=== PATIENT | female | born 1965 | race American Indian/Alaskan Native ===

== ENCOUNTER 2017-05-09 14:09 | Emergency (ER) | payer SELFPAY ==
[2017-05-09 14:20] VITALS: BP 117/63
[2017-05-09] MEDS ORDERED: MOTRIN PO ONE (14:48)
[2017-05-09] MEDS ORDERED: TESSALON PERLES PO ONE (14:48)
--- NOTE | 2017-05-09 15:09 | Emergency Department Report ---
- General Chief Complaint: Upper Respiratory Infection Stated Complaint: DIZZY WITH COUGH Time Seen by Provider: 05/09/17 14:48 Source: patient Mode of arrival: Ambulatory Limitations: No Limitations - History of Present Illness Initial Comments: This is a 51-year-old female nontoxic, well nourished in appearance, no acute signs of distress presents to the ED with c/o of productive cough, fever, chills , body aches, rhinorrhea, nasal congestion x1 week. Patient describes productive cough as yellow mucus production. Patient denies any sick contact. Patient denies any recent travels, long car, recent hospital stays. Patient denies any calf pain or calf tenderness. Patient denies any chest pain, short of breath, fever, chills, nausea, vomiting, hemoptysis, numbness, tingling, headache or stiff neck. Patient denies any allergies. Past medical history includes diabetes hypertension. MD Complaint: cough, rhinorrhea, nasal congestion -: week(s) (1) Severity: mild Severity scale (0 -10): 8 Quality: aching Consistency: constant Improves With: nothing Worsens With: nothing Associated Symptoms: rhinorrhea, nasal congestion, cough. denies: fever, chills , myalgias, diaphoresis, headache, sore throat, stiff neck, chest pain, shortness of breath, abdominal pain, nausea, vomiting, diarrhea, dysuria, rash, confusion, right sweats, weight loss, epistaxis, hoarseness, ear pain Treatments Prior to Arrival: none - Related Data Previous Rx's Medication Instructions Recorded Last Taken Type Cyclobenzaprine HCl [Flexeril] 10 mg PO TID #30 tablet 06/03/13 Unknown Rx HYDROcodone/APAP 7.5-325 [[place] 1 each PO Q6HR PRN #20 tablet 06/03/13 Unknown Rx 7.5/325 mg] Ibuprofen [Motrin] 600 mg PO Q8H PRN #60 tablet 06/03/13 Unknown Rx HYDROcodone/ACETAMINOPHEN [[place] 1 each PO Q6HR #20 tablet 09/12/13 Unknown Rx 5/325 Tablet] Ibuprofen [Motrin] 600 mg PO Q8H PRN #50 tablet 09/12/13 Unknown Rx Sulfamethoxazole/Trimethoprim 1 each PO BID #20 tablet 09/12/13 Unknown Rx [Bactrim Ds] HYDROcodone/APAP 5-325 [[place] 1 each PO Q6HR PRN #20 tablet 05/28/14 Unknown Rx 5/325] Lisinopril/Hydrochlorothiazide 1 tab PO QDAY #30 tablet 05/28/14 Unknown Rx [Zestoretic 20-12.5 mg] Prednisone [Prednisone 5 mg (6-Day 5 mg PO .TAPER #1 tab.ds.pk 05/28/14 Unknown Rx Pack, 21 Tabs)] glipiZIDE [glipiZIDE XL] 10 mg PO DAILY #30 tab.er.24 05/28/14 Unknown Rx Ibuprofen [Motrin 600 MG tab] 600 mg PO Q8H PRN #30 tablet 10/30/14 Unknown Rx Sulfamethoxazole/Trimethoprim 1 each PO BID #20 tablet 10/30/14 Unknown Rx [Bactrim DS TAB] traMADol [Ultram 50 MG tab] 50 mg PO Q6HR PRN #20 tablet 10/30/14 Unknown Rx Doxycycline [Vibramycin CAP] 100 mg PO Q12HR #20 capsule 03/17/15 Unknown Rx Ibuprofen [Motrin] 800 mg PO Q8HR PRN #15 tablet 03/17/15 Unknown Rx Lisinopril/Hydrochlorothiazide 1 tab PO QDAY #30 tab 03/17/15 Unknown Rx [Zestoretic 20-12.5 mg] ALBUTEROL Inhaler [ProAir HFA 2 puff IH QID PRN #1 inhalation 05/09/17 Unknown Rx Inhaler] Azithromycin [Zithromax Z-ZACH] 250 mg PO DAILY #6 tablet 05/09/17 Unknown Rx Benzonatate [Tessalon Perle] 100 mg PO DAILY PRN #20 capsule 05/09/17 Unknown Rx Prednisone [predniSONE 10 mg 10 mg PO .TAPER #1 tab.ds.pk 05/09/17 Unknown Rx (6-Day Pack, 21 Tabs)] Allergies Allergy/AdvReac Type Severity Reaction Status Date / Time No Known Allergies Allergy Verified 09/12/13 10:04 ED Review of Systems ROS: Stated complaint: DIZZY WITH COUGH Other details as noted in HPI Constitutional: denies: chills, fever Eyes: denies: eye pain, eye discharge, vision change ENT: denies: ear pain, throat pain Respiratory: cough. denies: shortness of breath, wheezing Cardiovascular: denies: chest pain, palpitations Endocrine: no symptoms reported Gastrointestinal: denies: abdominal pain, nausea, diarrhea Genitourinary: denies: urgency, dysuria, discharge Musculoskeletal: denies: back pain, joint swelling, arthralgia Skin: denies: rash, lesions Neurological: denies: headache, weakness, paresthesias Psychiatric: denies: anxiety, depression Hematological/Lymphatic: denies: easy bleeding, easy bruising ED Past Medical Hx - Past Medical History Hx Hypertension: Yes Hx Diabetes: Yes - Surgical History Additional Surgical History: Hyst. - Social History Smoking Status: Current Every Day Smoker Substance Use Type: Alcohol, Methamphetamines - Medications Home Medications: Home Medications Medication Instructions Recorded Confirmed Last Taken Type Cyclobenzaprine HCl [Flexeril] 10 mg PO TID #30 tablet 06/03/13 Unknown Rx HYDROcodone/APAP 7.5-325 [[place] 1 each PO Q6HR PRN #20 tablet 06/03/13 Unknown Rx 7.5/325 mg] Ibuprofen [Motrin] 600 mg PO Q8H PRN #60 tablet 06/03/13 Unknown Rx HYDROcodone/ACETAMINOPHEN [[place] 1 each PO Q6HR #20 tablet 09/12/13 Unknown Rx 5/325 Tablet] Ibuprofen [Motrin] 600 mg PO Q8H PRN #50 tablet 09/12/13 Unknown Rx Sulfamethoxazole/Trimethoprim 1 each PO BID #20 tablet 09/12/13 Unknown Rx [Bactrim Ds] HYDROcodone/APAP 5-325 [[place] 1 each PO Q6HR PRN #20 tablet 05/28/14 Unknown Rx 5/325] Lisinopril/Hydrochlorothiazide 1 tab PO QDAY #30 tablet 05/28/14 Unknown Rx [Zestoretic 20-12.5 mg] Prednisone [Prednisone 5 mg (6-Day 5 mg PO .TAPER #1 tab.ds.pk 05/28/14 Unknown Rx Pack, 21 Tabs)] glipiZIDE [glipiZIDE XL] 10 mg PO DAILY #30 tab.er.24 05/28/14 Unknown Rx Ibuprofen [Motrin 600 MG tab] 600 mg PO Q8H PRN #30 tablet 10/30/14 Unknown Rx Sulfamethoxazole/Trimethoprim 1 each PO BID #20 tablet 10/30/14 Unknown Rx [Bactrim DS TAB] traMADol [Ultram 50 MG tab] 50 mg PO Q6HR PRN #20 tablet 10/30/14 Unknown Rx Doxycycline [Vibramycin CAP] 100 mg PO Q12HR #20 capsule 03/17/15 Unknown Rx Ibuprofen [Motrin] 800 mg PO Q8HR PRN #15 tablet 03/17/15 Unknown Rx Lisinopril/Hydrochlorothiazide 1 tab PO QDAY #30 tab 03/17/15 Unknown Rx [Zestoretic 20-12.5 mg] ALBUTEROL Inhaler [ProAir HFA 2 puff IH QID PRN #1 inhalation 05/09/17 Unknown Rx Inhaler] Azithromycin [Zithromax Z-ZACH] 250 mg PO DAILY #6 tablet 05/09/17 Unknown Rx Benzonatate [Tessalon Perle] 100 mg PO DAILY PRN #20 capsule 05/09/17 Unknown Rx Prednisone [predniSONE 10 mg 10 mg PO .TAPER #1 tab.ds.pk 05/09/17 Unknown Rx (6-Day Pack, 21 Tabs)] ED Physical Exam - General Limitations: No Limitations General appearance: alert, in no apparent distress - Head Head exam: Present: atraumatic, normocephalic - Eye Eye exam: Present: normal appearance, PERRL, EOMI Pupils: Present: normal accommodation - ENT ENT exam: Present: normal exam, normal orophraynx, mucous membranes moist, TM's normal bilaterally, normal external ear exam - Neck Neck exam: Present: normal inspection, full ROM. Absent: tenderness, meningismus, lymphadenopathy, thyromegaly - Respiratory Respiratory exam: Present: normal lung sounds bilaterally. Absent: respiratory distress, wheezes, rales, rhonchi, stridor, chest wall tenderness, accessory muscle use, decreased breath sounds, prolonged expiratory - Cardiovascular Cardiovascular Exam: Present: regular rate, normal rhythm, normal heart sounds. Absent: bradycardia, tachycardia, irregular rhythm, systolic murmur, diastolic murmur, rubs, gallop - GI/Abdominal GI/Abdominal exam: Present: soft, normal bowel sounds. Absent: distended, tenderness, guarding, rebound, rigid, diminished bowel sounds - Rectal Rectal exam: Present: deferred - Extremities Exam Extremities exam: Present: normal inspection, full ROM, normal capillary refill. Absent: tenderness, pedal edema, joint swelling, calf tenderness - Back Exam Back exam: Present: normal inspection, full ROM. Absent: tenderness, CVA tenderness (R), CVA tenderness (L), muscle spasm, paraspinal tenderness, vertebral tenderness, rash noted - Neurological Exam Neurological exam: Present: alert, oriented X3, CN II-XII intact, normal gait, reflexes normal - Psychiatric Psychiatric exam: Present: normal affect, normal mood - Skin Skin exam: Present: warm, dry, intact, normal color. Absent: rash ED Course Vital Signs 05/09/17 14:11 Temperature 98.5 F Pulse Rate 76 Respiratory 18 Rate Blood Pressure 117/63 O2 Sat by Pulse 99 Oximetry - Reevaluation(s) Reevaluation #1: 05/09/17 15:14 Patient is speaking in full sentences with no signs of distress noted. ED Medical Decision Making - Medical Decision Making This is a 51-year-old female that presents with upper respiratory infection. Patient is stable and was examined by me. Chest x-ray has been obtained and dictated by radiologist with normal exam. Patient is notified of x-ray results with no questions noted. Due to patient having symptoms of upper respiratory infection and worsening I will treat patient empirically with zpak and prednisone. Patient is above the >72 hour window for tamiflu if influenza. Patient was instructed to increase hydration, rest and take Motrin for fever episodes. Patient received motrin and tesslone perrls in the ED. Vitals stable. Patient is nonfebrile and normal heart rate. Patient was orally hydrated and patient tolerated well known nausea or vomiting. Patient was instructed Follow-up with a primary care doctor in 3-5 days or if symptoms worsen and continue return to emergency room as soon as possible. At time time of discharge, the patient does not seem toxic or ill in appearance. No acute signs of distress noted. Patient agrees to discharge treatment plan of care. No further questions noted by the patient. Critical care attestation.: If time is entered above; I have spent that time in minutes in the direct care of this critically ill patient, excluding procedure time. ED Disposition Clinical Impression: Upper respiratory infection Qualifiers: URI type: unspecified URI Qualified Code(s): J06.9 - Acute upper respiratory infection, unspecified Disposition: - TO HOME OR SELFCARE Is pt being admited?: No Does the pt Need Aspirin: No Condition: Stable Instructions: Benzonatate (By mouth), Prednisone (By mouth), Azithromycin (By mouth), Upper Respiratory Infection (ED) Additional Instructions: Follow-up with a primary care doctor in 3-5 days or if symptoms worsen and continue return to emergency room as soon as possible. Prescriptions: ALBUTEROL Inhaler [ProAir HFA Inhaler] 2 puff IH QID PRN #1 inhalation PRN Reason: Shortness Of Breath Azithromycin [Zithromax Z-ZACH] 250 mg PO DAILY #6 tablet Benzonatate [Tessalon Perle] 100 mg PO DAILY PRN #20 capsule PRN Reason: Cough Prednisone [predniSONE 10 mg (6-Day Pack, 21 Tabs)] 10 mg PO .TAPER #1 tab.ds.pk Referrals: PRIMARY CARE, [Primary Care Provider] - 3-5 Days CLAUDIA VALDES MD [Staff Physician] - 3-5 Days [facility] [Outside] - 3-5 Days [facility] [Outside] - 3-5 Days Forms: Work/School Release Form(ED)
--- NOTE | 2017-05-09 16:27 | XRay Report ---
FINAL REPORT EXAM: XR CHEST ROUTINE 2V HISTORY: cough TECHNIQUE: PA and lateral views of the chest PRIORS: None. FINDINGS: Lines, tubes, and devices: N/A Lungs and pleura: Trachea is normal in position. There is mild perihilar bronchial wall thickening suggesting viral bronchiolitis. Lungs are clear of infiltrate, pleural effusion, vascular congestion, or pneumothorax. Cardiomediastinal silhouette: Cardiac and mediastinal silhouettes are unremarkable. Other: Bony structures are intact. IMPRESSION: Mild perihilar bronchial thickening suggesting viral bronchiolitis.
== END 2017-05-09 16:42 | disposition home or self-care (01) ==
LOC: ED 14:09
DX: J06.9 Acute upper respiratory infection, unspecified (principal); I10 Essential (primary) hypertension; E11.9 Type 2 diabetes mellitus without complications; F17.200 Nicotine dependence, unspecified, uncomplicated; F15.10 Other stimulant abuse, uncomplicated
CPT/HCPCS: 71046; 93005; 93010; 99283

== ENCOUNTER 2017-05-16 06:41 | Emergency (ER) | payer SELFPAY ==
[2017-05-16 07:50] LABS: Hematocrit 40.1 % (30.3-42.9); Hemoglobin 12.8 gm/dl (10.1-14.3); Mean Corpuscular HGB Conc 32 % (30-34); Mean Corpuscular Hemoglobin 26 pg (28-32); Mean Corpuscular Volume 81 fl (79-97); Platelet Count 256 K/mm3 (140-440); Red Blood Count 4.93 M/mm3 (3.65-5.03); Red Cell Distribution Width 13.4 % (13.2-15.2)
[2017-05-16 08:04] LABS: BUN/Creatinine Ratio 24; Blood Urea Nitrogen 19 mg/dL (7-17); Calcium 9.9 mg/dL (8.4-10.2); Hemolysis Index 13
--- NOTE | 2017-05-16 08:35 | XRay Report ---
FINAL REPORT EXAM: XR CHEST ROUTINE 2V HISTORY: Shortness of breath TECHNIQUE: PA and lateral chest radiographs PRIORS: 05/09/2017 FINDINGS: No mediastinal shift. Cardiac silhouette is not enlarged. No pneumothorax, effusion, or focal pulmonary opacity. No acute skeletal finding. IMPRESSION: No focal pulmonary opacity.
[2017-05-16] MEDS ORDERED: NACL 0.9% 1000 ML 2,000 ML IV ONE (08:55)
--- NOTE | 2017-05-16 09:15 | Emergency Department Report ---
ED General Adult HPI - General Chief complaint: Weakness Stated complaint: SOB,WEAK Time Seen by Provider: 05/16/17 09:11 Source: patient Mode of arrival: Ambulatory Limitations: No Limitations - History of Present Illness Initial comments: Seen here roughly a week ago with cough and cold symptoms she was several days in the symptom complex therefore influenza study was not obtained they did feel like it was likely URI to get a chest x-ray as well chest x-ray was negative she was sent home on antibiotics and steroids. She is back today stating that for the last 3-4 days she's had polyuria polydipsia. She has a history of diabetes that is diet controlled over the last 10 years. She is worried it may be her sugars are elevated. She is having a persistent cough. She denies headache stiff neck fever nausea vomiting abdominal pain or other complaints -: Gradual Radiation: non-radiation Severity scale (0 -10): 0 Associated Symptoms: malaise. denies: confusion, chest pain, cough, diaphoresis , fever/chills, headaches, loss of appetite, nausea/vomiting, rash, seizure, shortness of breath, syncope, weakness - Related Data Previous Rx's Medication Instructions Recorded Last Taken Type Cyclobenzaprine HCl [Flexeril] 10 mg PO TID #30 tablet 06/03/13 Unknown Rx HYDROcodone/APAP 7.5-325 [[place] 1 each PO Q6HR PRN #20 tablet 06/03/13 Unknown Rx 7.5/325 mg] Ibuprofen [Motrin] 600 mg PO Q8H PRN #60 tablet 06/03/13 Unknown Rx HYDROcodone/ACETAMINOPHEN [[place] 1 each PO Q6HR #20 tablet 09/12/13 Unknown Rx 5/325 Tablet] Ibuprofen [Motrin] 600 mg PO Q8H PRN #50 tablet 09/12/13 Unknown Rx Sulfamethoxazole/Trimethoprim 1 each PO BID #20 tablet 09/12/13 Unknown Rx [Bactrim Ds] HYDROcodone/APAP 5-325 [[place] 1 each PO Q6HR PRN #20 tablet 05/28/14 Unknown Rx 5/325] Lisinopril/Hydrochlorothiazide 1 tab PO QDAY #30 tablet 05/28/14 Unknown Rx [Zestoretic 20-12.5 mg] Prednisone [Prednisone 5 mg (6-Day 5 mg PO .TAPER #1 tab.ds.pk 05/28/14 Unknown Rx Pack, 21 Tabs)] glipiZIDE [glipiZIDE XL] 10 mg PO DAILY #30 tab.er.24 05/28/14 Unknown Rx Ibuprofen [Motrin 600 MG tab] 600 mg PO Q8H PRN #30 tablet 10/30/14 Unknown Rx Sulfamethoxazole/Trimethoprim 1 each PO BID #20 tablet 10/30/14 Unknown Rx [Bactrim DS TAB] traMADol [Ultram 50 MG tab] 50 mg PO Q6HR PRN #20 tablet 10/30/14 Unknown Rx Doxycycline [Vibramycin CAP] 100 mg PO Q12HR #20 capsule 03/17/15 Unknown Rx Ibuprofen [Motrin] 800 mg PO Q8HR PRN #15 tablet 03/17/15 Unknown Rx Lisinopril/Hydrochlorothiazide 1 tab PO QDAY #30 tab 03/17/15 Unknown Rx [Zestoretic 20-12.5 mg] ALBUTEROL Inhaler [ProAir HFA 2 puff IH QID PRN #1 inhalation 05/09/17 Unknown Rx Inhaler] Azithromycin [Zithromax Z-ZACH] 250 mg PO DAILY #6 tablet 05/09/17 Unknown Rx Benzonatate [Tessalon Perle] 100 mg PO DAILY PRN #20 capsule 05/09/17 Unknown Rx Prednisone [predniSONE 10 mg 10 mg PO .TAPER #1 tab.ds.pk 05/09/17 Unknown Rx (6-Day Pack, 21 Tabs)] Sulfamethoxazole/Trimethoprim 1 each PO BID #14 tablet 05/16/17 Unknown Rx [Bactrim Ds Tablet] Allergies Allergy/AdvReac Type Severity Reaction Status Date / Time No Known Allergies Allergy Verified 09/12/13 10:04 ED Review of Systems ROS: Stated complaint: SOB,WEAK Other details as noted in HPI Comment: All other systems reviewed and negative Constitutional: malaise. denies: diaphoresis, fever ENT: denies: dental pain, hearing loss, epistaxis Respiratory: denies: shortness of breath, SOB with exertion, SOB at rest, stridor Cardiovascular: denies: chest pain, palpitations, dyspnea on exertion Endocrine: denies: excessive sweating, intolerance to cold, intolerance to heat , increased hunger, unexplained weight gain, unexplained weight loss Gastrointestinal: denies: abdominal pain, nausea, vomiting, diarrhea, constipation, hematemesis, melena, hematochezia Genitourinary: urgency, frequency. denies: discharge, abnormal menses Musculoskeletal: denies: joint swelling, arthralgia Neurological: denies: numbness, paresthesias, confusion, abnormal gait ED Past Medical Hx - Past Medical History Previous Medical History?: Yes Hx Hypertension: Yes Hx Diabetes: Yes - Surgical History Past Surgical History?: Yes Additional Surgical History: Hyst. - Social History Smoking Status: Never Smoker Substance Use Type: None - Medications Home Medications: Home Medications Medication Instructions Recorded Confirmed Last Taken Type Cyclobenzaprine HCl [Flexeril] 10 mg PO TID #30 tablet 06/03/13 Unknown Rx HYDROcodone/APAP 7.5-325 [[place] 1 each PO Q6HR PRN #20 tablet 06/03/13 Unknown Rx 7.5/325 mg] Ibuprofen [Motrin] 600 mg PO Q8H PRN #60 tablet 06/03/13 Unknown Rx HYDROcodone/ACETAMINOPHEN [[place] 1 each PO Q6HR #20 tablet 09/12/13 Unknown Rx 5/325 Tablet] Ibuprofen [Motrin] 600 mg PO Q8H PRN #50 tablet 09/12/13 Unknown Rx Sulfamethoxazole/Trimethoprim 1 each PO BID #20 tablet 09/12/13 Unknown Rx [Bactrim Ds] HYDROcodone/APAP 5-325 [[place] 1 each PO Q6HR PRN #20 tablet 05/28/14 Unknown Rx 5/325] Lisinopril/Hydrochlorothiazide 1 tab PO QDAY #30 tablet 05/28/14 Unknown Rx [Zestoretic 20-12.5 mg] Prednisone [Prednisone 5 mg (6-Day 5 mg PO .TAPER #1 tab.ds.pk 05/28/14 Unknown Rx Pack, 21 Tabs)] glipiZIDE [glipiZIDE XL] 10 mg PO DAILY #30 tab.er.24 05/28/14 Unknown Rx Ibuprofen [Motrin 600 MG tab] 600 mg PO Q8H PRN #30 tablet 10/30/14 Unknown Rx Sulfamethoxazole/Trimethoprim 1 each PO BID #20 tablet 10/30/14 Unknown Rx [Bactrim DS TAB] traMADol [Ultram 50 MG tab] 50 mg PO Q6HR PRN #20 tablet 10/30/14 Unknown Rx Doxycycline [Vibramycin CAP] 100 mg PO Q12HR #20 capsule 03/17/15 Unknown Rx Ibuprofen [Motrin] 800 mg PO Q8HR PRN #15 tablet 03/17/15 Unknown Rx Lisinopril/Hydrochlorothiazide 1 tab PO QDAY #30 tab 03/17/15 Unknown Rx [Zestoretic 20-12.5 mg] ALBUTEROL Inhaler [ProAir HFA 2 puff IH QID PRN #1 inhalation 05/09/17 Unknown Rx Inhaler] Azithromycin [Zithromax Z-ZACH] 250 mg PO DAILY #6 tablet 05/09/17 Unknown Rx Benzonatate [Tessalon Perle] 100 mg PO DAILY PRN #20 capsule 05/09/17 Unknown Rx Prednisone [predniSONE 10 mg 10 mg PO .TAPER #1 tab.ds.pk 05/09/17 Unknown Rx (6-Day Pack, 21 Tabs)] Sulfamethoxazole/Trimethoprim 1 each PO BID #14 tablet 05/16/17 Unknown Rx [Bactrim Ds Tablet] ED Physical Exam - General Limitations: No Limitations General appearance: alert, in no apparent distress, anxious - Head Head exam: Present: atraumatic, normocephalic - Eye Eye exam: Present: PERRL, EOMI - ENT ENT exam: Present: normal exam - Neck Neck exam: Present: normal inspection. Absent: tenderness, meningismus - Respiratory Respiratory exam: Present: normal lung sounds bilaterally. Absent: respiratory distress, wheezes, rales, rhonchi, stridor, decreased breath sounds, prolonged expiratory - Cardiovascular Cardiovascular Exam: Present: regular rate, normal rhythm, normal heart sounds. Absent: bradycardia, tachycardia, irregular rhythm - GI/Abdominal GI/Abdominal exam: Present: soft. Absent: distended, tenderness, guarding, rebound, rigid, hyperactive bowel sounds, hypoactive bowel sounds, pulsatile mass - Extremities Exam Extremities exam: Present: normal inspection, normal capillary refill. Absent: tenderness, pedal edema, joint swelling, calf tenderness - Back Exam Back exam: Present: normal inspection. Absent: CVA tenderness (R), CVA tenderness (L), muscle spasm, paraspinal tenderness, vertebral tenderness - Neurological Exam Neurological exam: Present: alert, oriented X3, CN II-XII intact, normal gait. Absent: altered, motor sensory deficit - Skin Skin exam: Absent: cyanosis, diaphoretic, erythema, urticaria, vesicles, petechiae ED Course Vital Signs 05/16/17 05/16/17 05/16/17 06:59 09:00 09:30 Temperature 98.0 F Pulse Rate 107 H 97 H Respiratory 17 14 Rate Blood Pressure 123/93 143/94 O2 Sat by Pulse 99 98 Oximetry ED Medical Decision Making - Lab Data Result diagrams: 05/16/17 07:13 05/16/17 07:13 - Radiology Data Radiology results: report reviewed - Medical Decision Making Patient's glucose was initially 600 is still improved in the ED with sliding scale insulin and fluids. He was in the 300s she does not appear to be dehydrated ketones are negative and the urine bicarbonate was normal and the serum. Chest x-ray is negative symptoms consist of persistent bronchitis after finishing a Z-Zach and a steroid. With hyperglycemia but no ketosis. No skin rash or headache no stiff neck she does have evidence of a UTI. She is well- hydrated tolerating by mouth still 5% follow-up for further evaluation of hyperglycemia without ketosis with UTI and resolving bronchitis we will restart antibiotics she can stop the steroids she will need follow-up with her regular doctor for further evaluation of hyperglycemia she had no chest pain no abdominal pain or other complaints no other emergent processes identified and would warrant further workup or admission at this time she is stable for outpatient follow-up Critical care attestation.: If time is entered above; I have spent that time in minutes in the direct care of this critically ill patient, excluding procedure time. ED Disposition Clinical Impression: Hyperglycemia without ketosis, UTI (urinary tract infection) Disposition: TO HOME OR SELFCARE Is pt being admited?: No Condition: Stable Instructions: Diabetic Hyperglycemia (ED), Urinary Tract Infection in Women (ED ) Additional Instructions: See her doctor tomorrow and return if new or alarming symptoms or call 911 Prescriptions: Sulfamethoxazole/Trimethoprim [Bactrim Ds Tablet] 1 each PO BID #14 tablet Referrals: PRIMARY CARE, [Primary Care Provider] - 3-5 Days Time of Disposition: 13:34
[2017-05-16] MEDS ORDERED: HumuLIN R SUB-Q ONE ×3 (09:52→11:40)
[2017-05-16 10:00] LABS: Anisocytosis 1+; Band Neutrophils # (Manual) 0.1 K/mm3; Basophils % (Manual) 0 % (0.0-1.8); Platelet Estimate Consistent w Auto; Total Cells Counted 100
[2017-05-16 11:33] LABS: Bacteria,Urine 1+ /HPF (Negative); Bilirubin,Urine NEG (Negative); Blood,Urine NEG (Negative); Color,Urine Straw (Yellow); Mucus,Urine FEW /HPF; Protein,Urine <15 mg/dL mg/dL (Negative); Urobilinogen,Urine < 2.0 mg/dL (<2.0)
[2017-05-16 13:44] VITALS: BP 134/91
== END 2017-05-16 14:09 | disposition home or self-care (01) ==
LOC: ED 06:41
DX: N39.0 Urinary tract infection, site not specified (principal); E11.65 Type 2 diabetes mellitus with hyperglycemia; I10 Essential (primary) hypertension
CPT/HCPCS: 36415; 71046; 80048; 81001; 82962; 84484; 84703; 85007; 85025; 87086; 93005; 93010; 96372; 99284; J7030; J1815

== ENCOUNTER 2018-07-06 10:37 | Emergency (ER) | payer SELFPAY ==
[2018-07-06 10:58] VITALS: BP 157/100
[2018-07-06] MEDS ORDERED: DELTASONE PO ONE (12:53)
[2018-07-06] MEDS ORDERED: PEPCID PO ONE (12:53)
[2018-07-06] MEDS ORDERED: KEFLEX PO ONE (12:53)
--- NOTE | 2018-07-06 13:01 | Emergency Department Report ---
ED Rash HPI - HPI Chief Complaint: Skin Rash Stated Complaint: ARMS SWOLLEN Time Seen by Provider: 07/06/18 12:48 Duration: 3 Days Location: Upper Extremities Suspected Cause: Insect Rash Symptoms: Yes Itching, No Facial Swelling, No Tongue/Oral Swelling, No Breathing Difficulties, No Choking Sensation, No Wheezing/Dyspnea, No Peeling, No Blistering, No Fever, No Lightheaded, No Malaise, No Myalgias Severity: mild Other History: 3 DAY HX OF BUG BITES ON BUE. NOW WITH SURROUNDING REDNESS AND SWELLING. PMH. DM ED Review of Systems ROS: Stated complaint: ARMS SWOLLEN Other details as noted in HPI Comment: All other systems reviewed and negative ED Past Medical Hx - Past Medical History Previous Medical History?: Yes Hx Hypertension: Yes Hx Diabetes: Yes - Surgical History Past Surgical History?: Yes Additional Surgical History: Hysterectomy - Family History Family history: no significant - Social History Smoking Status: Never Smoker Substance Use Type: None - Medications Home Medications: Home Medications Medication Instructions Recorded Confirmed Last Taken Type Lisinopril/Hydrochlorothiazide 1 tab PO QDAY #30 tablet 05/28/14 Unknown Rx [Zestoretic 20-12.5 mg] Lisinopril/Hydrochlorothiazide 1 tab PO QDAY #30 tab 03/17/15 Unknown Rx [Zestoretic 20-12.5 mg] Famotidine [Pepcid] 20 mg PO DAILY #5 tablet 07/06/18 Unknown Rx cephALEXin [Keflex] 500 mg PO Q12HR #14 cap 07/06/18 Unknown Rx diphenhydrAMINE [Benadryl CAP] 25 mg PO Q8HR PRN #20 capsule 07/06/18 Unknown Rx methylPREDNISolone [Medrol] 4 mg PO DAILY #1 tab.ds.pk 07/06/18 Unknown Rx Rash Exam - Exam General: Vital signs noted. No distress. Alert and acting appropriately. HEENT: No Periorbital Edema, No Conjuctival Injection, No Chemosis, No Perioral Edema, No Tongue Edema, No Uvular Edema, No Compromised Airway, No Drooling Lungs: Yes Good Air Exchange, No Wheezes, No Ronchi, No Stridor, No Cough, No Labored Respirations, No Retractions, No Use of Accessory Muscles, No Other Abnormal Lung Sounds Heart: Yes Regular, No Murmur Skin: Yes Bulla(e), Yes Erythema, Yes Edema, No Urticarial Rash, No Maculopapular Rash, No Morbilliform rash, No Excoriations, No Weeping, No Tenderness, No Encrustations Other: Positive: Abdomen Normal, Neurologic Normal, Musculoskeletal Normal ED Course Vital Signs 07/06/18 10:56 Temperature 98.5 F Pulse Rate 102 H Respiratory 102 H Rate Blood Pressure 157/100 ED Medical Decision Making - Medical Decision Making INSECT BITES APPROX 6 LUE 1 ON R ELBOW WAS IN HER STORAGE SHED THIS WEEKEND DID NOT SEE A BUG OTHER THAN SPIDER NO NECROSIS Vital Signs 07/06/18 10:56 Temperature 98.5 F Pulse Rate 102 H Respiratory 102 H Rate Blood Pressure 157/100 THE LESIONS ARE ROUND FLUID FILLED AND FIRM TO PALPATION. SURROUNDING SKIN IS RED AND SWOLLEN. NEUROVASC INTACT ULNAR/RADIAL AND MEDIAL NERVE FUNCTION NORMAL RAPID CAP REFILL ULNAR AND RAD PULSES PLUS 2 BILATERAL PT IS DIABETIC ON METFORMIN/GLYBURIDE WILL TREAT INFLAMMATION AND FOR INFECTION GIVEN THE AMOUNT OF REDNESS AND SWELLING. THERE ARE CURRENTLY NO OPEN AREAS Critical care attestation.: If time is entered above; I have spent that time in minutes in the direct care of this critically ill patient, excluding procedure time. ED Disposition Clinical Impression: Insect bite, Cellulitis Disposition: - TO HOME OR SELFCARE Is pt being admited?: No Does the pt Need Aspirin: No Condition: Stable Instructions: Insect Bite or Sting (ED) Additional Instructions: DIET TOLERATED MEDS ORDERED TODAY IN ER FOLLOW INSTRUCTIONS ON THE BOTTLE FOLLOW UP PCP WITHIN 48 HOURS TO ENSURE YOU ARE GETTING BETTER ACTIVITY TOLERATED MOTRIN OR TYLENOL FOR PAIN OR FEVER RETURN TO THE ER FOR WORSENING SYMPTOMS NOT RELIEVED BY YOUR MEDICATIONS. Prescriptions: diphenhydrAMINE [Benadryl CAP] 25 mg PO Q8HR PRN #20 capsule PRN Reason: Itching cephALEXin [Keflex] 500 mg PO Q12HR #14 cap methylPREDNISolone [Medrol] 4 mg PO DAILY #1 tab.ds.pk Famotidine [Pepcid] 20 mg PO DAILY #5 tablet Referrals: DARIUSZ DICKSON MD [Primary Care Provider] - 3-5 Days Time of Disposition: 12:58
== END 2018-07-06 13:26 | disposition home or self-care (01) ==
LOC: ED 10:37
DX: L03.114 Cellulitis of left upper limb (principal); L03.113 Cellulitis of right upper limb; I10 Essential (primary) hypertension; E11.9 Type 2 diabetes mellitus without complications; Z90.710 Acquired absence of both cervix and uterus
CPT/HCPCS: 99282; J7512

== ENCOUNTER 2018-12-14 10:56 | Emergency (ER) | payer SELFPAY ==
--- NOTE | 2018-12-14 11:08 | Event Note ---
ED Screening Note Date of service: 12/14/18 Time: 11:06 ED Screening Note: 53 y/o female comes in for concern for UTI. Patient reports pelvic pain. Hysterectomy. This initial assessment/diagnostic orders/clinical plan/treatment(s) is/are subject to change based on patients health status, clinical progression and re- assessment by fellow clinical providers in the ED. Further treatment and workup at subsequent clinical providers discretion. Patient/guardian urged not to elope from the ED as their condition may be serious if not clinically assessed and managed. Initial orders include:
[2018-12-14 12:34] LABS: Bilirubin,Urine NEG (Negative); Blood,Urine NEG (Negative); Color,Urine Yellow (Yellow); Hyaline Casts,Urine 1 /LPF; Mucus,Urine FEW /HPF; Protein,Urine <15 mg/dL mg/dL (Negative); RBC,Urine < 1.0 /HPF (0.0-6.0); Urobilinogen,Urine < 2.0 mg/dL (<2.0)
[2018-12-14 12:35] LABS: Basophils % (Auto) 0.4 % (0.0-1.8); Eosinophils % (Auto) 0.5 % (0.0-4.3); Hematocrit 38.1 % (30.3-42.9); Hemoglobin 12.2 gm/dl (10.1-14.3); Lymphocytes # (Auto) 1.5 K/mm3 (1.2-5.4); Lymphocytes % (Auto) 28.8 % (13.4-35.0); Mean Corpuscular HGB Conc 32 % (30-34); Mean Corpuscular Volume 83 fl (79-97); Monocytes # (Auto) 0.4 K/mm3 (0.0-0.8); Monocytes % (Auto) 7.5 % (0.0-7.3); Platelet Count 193 K/mm3 (140-440); Red Blood Count 4.62 M/mm3 (3.65-5.03); Red Cell Distribution Width 13.9 % (13.2-15.2)
[2018-12-14 12:43] LABS: Alanine Aminotransferase 16 units/L (7-56); Albumin 4.3 g/dL (3.9-5); BUN/Creatinine Ratio 23; Bilirubin,Direct < 0.2 mg/dL (0-0.2); Blood Urea Nitrogen 14 mg/dL (7-17); Calcium 9.7 mg/dL (8.4-10.2); Hemolysis Index 5
--- NOTE | 2018-12-14 13:59 | Emergency Department Report ---
ED General Adult HPI - General Chief complaint: Abdominal Pain Stated complaint: LOWER ABD PAIN Time Seen by Provider: 12/14/18 11:05 Source: patient Mode of arrival: Ambulatory Limitations: No Limitations - History of Present Illness Initial comments: 53-year-old female complains of urinary frequency for the past 3 days. She also states that she's had some suprapubic discomfort. She denies dysuria. She's had no fever or chills. The discomfort is intermittent and mild in intensity. It does not radiate. She denies nausea vomiting diarrhea or change in her bowel pattern. She is status post hysterectomy. She has a history of hypertension. -: Gradual, days(s) Location: abdomen Radiation: non-radiation Quality: aching Consistency: intermittent Improves with: none Worsens with: none Associated Symptoms: denies other symptoms Treatments Prior to Arrival: none - Related Data Previous Rx's Medication Instructions Recorded Last Taken Type Lisinopril/Hydrochlorothiazide 1 tab PO QDAY #30 tablet 05/28/14 Unknown Rx [Zestoretic 20-12.5 mg] Lisinopril/Hydrochlorothiazide 1 tab PO QDAY #30 tab 03/17/15 Unknown Rx [Zestoretic 20-12.5 mg] Famotidine [Pepcid] 20 mg PO DAILY #5 tablet 07/06/18 Unknown Rx cephALEXin [Keflex] 500 mg PO Q12HR #14 cap 07/06/18 Unknown Rx diphenhydrAMINE [Benadryl CAP] 25 mg PO Q8HR PRN #20 capsule 07/06/18 Unknown Rx methylPREDNISolone [Medrol] 4 mg PO DAILY #1 tab.ds.pk 07/06/18 Unknown Rx traMADol [Ultram 50 MG tab] 50 mg PO Q6HR PRN #7 tablet 12/14/18 Unknown Rx Allergies Allergy/AdvReac Type Severity Reaction Status Date / Time No Known Allergies Allergy Verified 09/12/13 10:04 ED Review of Systems ROS: Stated complaint: LOWER ABD PAIN Other details as noted in HPI Constitutional: denies: chills, fever Eyes: denies: eye pain, eye discharge, vision change ENT: denies: ear pain, throat pain Respiratory: denies: cough, shortness of breath, wheezing Cardiovascular: denies: chest pain, palpitations Endocrine: no symptoms reported Gastrointestinal: abdominal pain. denies: nausea, vomiting, diarrhea, constipation, hematemesis, melena, hematochezia Genitourinary: frequency. denies: urgency, dysuria, hematuria, discharge, abn ormal menses Musculoskeletal: denies: back pain, joint swelling, arthralgia Skin: denies: rash, lesions Neurological: denies: headache, weakness, paresthesias Psychiatric: denies: anxiety, depression Hematological/Lymphatic: denies: easy bleeding, easy bruising ED Past Medical Hx - Past Medical History Hx Hypertension: Yes Hx Diabetes: Yes - Surgical History Additional Surgical History: Hysterectomy - Social History Smoking Status: Never Smoker Substance Use Type: None - Medications Home Medications: Home Medications Medication Instructions Recorded Confirmed Last Taken Type Lisinopril/Hydrochlorothiazide 1 tab PO QDAY #30 tablet 05/28/14 Unknown Rx [Zestoretic 20-12.5 mg] Lisinopril/Hydrochlorothiazide 1 tab PO QDAY #30 tab 03/17/15 Unknown Rx [Zestoretic 20-12.5 mg] Famotidine [Pepcid] 20 mg PO DAILY #5 tablet 07/06/18 Unknown Rx cephALEXin [Keflex] 500 mg PO Q12HR #14 cap 07/06/18 Unknown Rx diphenhydrAMINE [Benadryl CAP] 25 mg PO Q8HR PRN #20 capsule 07/06/18 Unknown Rx methylPREDNISolone [Medrol] 4 mg PO DAILY #1 tab.ds.pk 07/06/18 Unknown Rx traMADol [Ultram 50 MG tab] 50 mg PO Q6HR PRN #7 tablet 12/14/18 Unknown Rx ED Physical Exam - General Limitations: No Limitations General appearance: alert, in no apparent distress - Head Head exam: Present: atraumatic, normocephalic - Eye Eye exam: Present: normal appearance. Absent: scleral icterus - ENT ENT exam: Present: mucous membranes moist - Neck Neck exam: Present: normal inspection - Respiratory Respiratory exam: Present: normal lung sounds bilaterally. Absent: respiratory distress - Cardiovascular Cardiovascular Exam: Present: regular rate, normal rhythm. Absent: systolic murmur, diastolic murmur, rubs, gallop - GI/Abdominal GI/Abdominal exam: Present: soft, normal bowel sounds. Absent: distended, tenderness, guarding, rebound, rigid, organomegaly, mass, bruit, pulsatile mass, hernia - Extremities Exam Extremities exam: Present: normal inspection - Back Exam Back exam: Present: normal inspection - Neurological Exam Neurological exam: Present: alert, oriented X3, CN II-XII intact. Absent: motor sensory deficit - Psychiatric Psychiatric exam: Present: normal affect, normal mood - Skin Skin exam: Present: warm, dry, intact, normal color. Absent: rash ED Course Vital Signs 12/14/18 12/14/18 10:59 11:01 Temperature 98.6 F Pulse Rate 89 Respiratory 18 Rate Blood Pressure 180/103 [Left] O2 Sat by Pulse 100 Oximetry - Reevaluation(s) Reevaluation #1: Patient remains asymptomatic in the emergency department. She states she is actually on glipizide and metformin. I suspect her urinary frequency is related to her diabetes. We can culture her urine but it does not appear to show infection. 12/14/18 13:59 ED Medical Decision Making - Lab Data Result diagrams: 12/14/18 12:09 12/14/18 12:09 Laboratory Results - last 24 hr 12/14/18 12/14/18 12/14/18 12:02 12:09 12:09 WBC 5.1 RBC 4.62 Hgb 12.2 Hct 38.1 MCV 83 MCH 26 L MCHC 32 RDW 13.9 Plt Count 193 Lymph % (Auto) 28.8 [place] % (Auto) 7.5 H Eos % (Auto) 0.5 Baso % (Auto) 0.4 Lymph # 1.5 [place] # 0.4 Eos # 0.0 Baso # 0.0 Seg Neutrophils % 62.8 Seg Neutrophils # 3.2 Sodium 139 Potassium 3.9 Chloride 99.8 Carbon Dioxide 27 Anion Gap 16 BUN 14 Creatinine 0.6 L Estimated GFR > 60 BUN/Creatinine Ratio 23 Glucose 170 H Calcium 9.7 Total Bilirubin 0.30 Direct Bilirubin < 0.2 Indirect Bilirubin 0.1 AST 14 ALT 16 Alkaline Phosphatase 80 Total Protein 7.4 Albumin 4.3 Albumin/Globulin Ratio 1.4 Lipase 40 Urine Color Yellow Urine Turbidity Slightly-cloudy Urine pH 5.0 Ur Specific [place] 1.013 Urine Protein <15 mg/dl Urine Glucose (UA) Neg Urine Ketones Neg Urine Blood Neg Urine Nitrite Neg Urine Bilirubin Neg Urine Urobilinogen < 2.0 Ur Leukocyte Esterase Neg Urine WBC (Auto) 1.0 Urine RBC (Auto) < 1.0 U Epithel Cells (Auto) 9.0 Hyaline Casts 1 Urine Mucus Few Critical care attestation.: If time is entered above; I have spent that time in minutes in the direct care of this critically ill patient, excluding procedure time. ED Disposition Clinical Impression: Lower abdominal pain, Hypertension, essential Hyperglycemia due to type 2 diabetes mellitus Qualifiers: Diabetes mellitus nursing home insulin use: without termite treater use Qualified Code(s): E11.65 - Type 2 diabetes mellitus with hyperglycemia Disposition: TO HOME OR SELFCARE Is pt being admited?: No Does the pt Need Aspirin: No Condition: Stable Instructions: Abdominal Pain (ED), Diabetes Mellitus Type 2 in Adults (ED), H ypertension (ED) Additional Instructions: See your primary care physician for further management of your hypertension. Return to the emergency department any acute change or problem. Prescriptions: traMADol [Ultram 50 MG tab] 50 mg PO Q6HR PRN #7 tablet PRN Reason: Pain Referrals: PRIMARY CARE, [Primary Care Provider] - 2-3 Days Time of Disposition: 14:01
[2018-12-14 15:36] VITALS: BP 177/101
== END 2018-12-14 15:38 | disposition home or self-care (01) ==
LOC: ED 10:56
DX: E11.65 Type 2 diabetes mellitus with hyperglycemia (principal); I10 Essential (primary) hypertension; R10.2 Pelvic and perineal pain; Z90.710 Acquired absence of both cervix and uterus; Z79.899 Other long term (current) drug therapy
CPT/HCPCS: 36415; 80048; 80076; 81001; 83690; 85025; 87086